=== PATIENT | female | born 1990 | race Caucasian/White ===

== ENCOUNTER 2021-09-26 05:01 | Emergency (ER) | payer BC ==
[2021-09-26 05:51] LABS: Bilirubin Neg (Negative); Blood, Urine Negative (Negative); Clarity Clear (Clear); Glucose, Urine (Dipstick) Normal (Negative); Ketone, Urine 50 mg/dL (Negative); Leukocyte 25 (Negative); Nitrite Negative (Negative); Protein, Urine (Dipstick) Negative (Neg-Trace); Urobilinogen Normal mg/dL (Less than 2); pH, Urine 6.5 (5.0-9.0)
[2021-09-26 05:51] LABS: Actual Bicarbonate (HCO3v) 20 mEq/L (22-28); Base Excess -3.9 mEq/L (-2.0 to +3.0); Chloride (VBG) 105 mmol/L (98-106); Critical Notified By: CP.PH; Hemoglobin (Hb) 12.3 g/dL (11.7-15.5); Potassium (VBG) 3.58 mmol/L (3.70-5.30); Puncture Site Other Site; Sodium 135.5 mmol/L (133-146)
[2021-09-26 05:54] LABS: #Eosinphils 0.1 10x3/uL (0.0-0.5); #Monocytes 0.8 10x3/uL (0.0-1.1); #Neutrophils 4.4 10x3/uL (1.5-8.4); %Basophils 0.3 % (0.0-2.0); %Eosinophils 1.5 % (0.0-6.0); %Lymphocytes 27.8 % (18.0-47.0); %Monocytes 10.3 % (0.0-10.0); %Neutrophils 59.8 % (40.0-75.0); Hemoglobin 11.7 g/dL (12.0-15.5); Mean Corpuscular HGB CONC 34.5 g/dL (32.0-36.0); Mean Corpuscular Hemoglobin 30.2 pg (27.0-33.0); Mean Corpuscular Volume 87.4 fl (81.6-98.3); Platelet Count 378 10x3/uL (150-450); RBC Distribution Width 12.7 % (11.5-14.5); Red Blood Cell (RBC) Count 3.88 10x6/uL (3.90-5.03); White Blood Cell (WBC) Count 7.3 10x3/uL (3.5-10.5)
[2021-09-26 05:59] LABS: Bacteria/HPF 2+ HPF (None Seen); RBC/HPF None Seen HPF (0-3); WBC/HPF 0-3 HPF (0-3)
[2021-09-26 06:08] LABS: ALT (SGPT) 21 U/L (8-55); AST (SGOT) 28 U/L (5-34); Albumin 3.4 g/dL (3.5-5.0); Alkaline Phosphatase 95 U/L (40-110); Anion Gap 17 mmol/L (10-20); BUN (Urea Nitrogen) 6 mg/dL (7.0-18.7); Bilirubin, Total 0.6 mg/dL (0.2-1.2); Calc. Creatinine Clearance 0 mL/min (70-130); Calcium 8.6 mg/dL (7.8-10.44); Carbon Dioxide 18 mmol/L (22-29); Chloride 104 mmol/L (98-107); Estimated GFR 121; Globulin 2.6 g/dL (2.4-3.5); Glucose 133 mg/dL (70-105); Potassium 3.6 mmol/L (3.5-5.1); Sodium 135 mmol/L (136-145)
== END 2021-09-26 06:50 | disposition home or self-care (01) ==
LOC: CSHERS 05:01
DX: O23.13 Infections of bladder in pregnancy, third trimester (principal); N30.00 Acute cystitis without hematuria; O21.9 Vomiting of pregnancy, unspecified; Z3A.32 32 weeks gestation of pregnancy
CPT/HCPCS: 80053; 81003; 81015; 82010; 82805; 85025; 87086; 96360

== ENCOUNTER 2021-11-04 05:21 | Inpatient (IN) | payer BC ==
[2021-11-02 11:20] LABS: Mean Corpuscular HGB CONC 33.8 g/dL (32.0-36.0); Mean Corpuscular Hemoglobin 28.6 pg (27.0-33.0); Mean Corpuscular Volume 84.6 fl (81.6-98.3); Mean Platelet Volume 11.3 fl (7.4-10.4); Platelet Count 293 10x3/uL (150-450); RBC Distribution Width 13.1 % (11.5-14.5); Red Blood Cell (RBC) Count 3.84 10x6/uL (3.90-5.03); White Blood Cell (WBC) Count 8.9 10x3/uL (3.5-10.5)
[2021-11-02 11:44] LABS: Hep B Surf Ag Non-Reactive S/CO (NonReactive); Syphilis Antibody Nonreactive (Nonreactive); Syphilis Antibody Index 0.02 S/CO (<1.00 Non-Reactive)
[2021-11-02 12:04] LABS: HBSAg Index 0.22 S/CO (0-0.99)
[2021-11-04 05:31] VITALS: BMI 33.8
[2021-11-04] MEDS ORDERED: Famotidine/PF 20 mg/2ml Vial SLOW IVP PRN (06:05)
[2021-11-04] MEDS ORDERED: Ondansetron PF 4 MG/2 ML Vial IVP PRN ×3 (06:05→09:31)
[2021-11-04] MEDS ORDERED: Promethazine HCl 25 MG/ML VIAL IM PRN ×3 (06:05→09:31)
[2021-11-04] MEDS ORDERED: Bicitra 30 ML UDCUP PO PRN (06:05)
[2021-11-04] MEDS ORDERED: hydrALAZINE 20 MG/ML VIAL SLOW IVP PRN ×2 (06:05→09:31)
[2021-11-04] MEDS ORDERED: ceFAZolin 2 GM/Dextrose 50 ML 2 GM in Premix Bag 1 BAG IVPB SCH (06:15)
[2021-11-04] MEDS ORDERED: Lactated Ringer's 1,000 ML IV SCH (06:15)
[2021-11-04 06:39] LABS: Amphetamine Not Detected (NotDetected); Barbiturates Screen Not Detected (NotDetected); Benzodiazepine Screen Not Detected (NotDetected); Cocaine Metabolite Screen Not Detected (NotDetected); Methadone Not Detected (NotDetected); Methamphetamine Not Detected (NotDetected); Opiate Screen Not Detected (NotDetected); Oxycodone Screen Not Detected (NotDetected); Phencyclidine (PCP) Not Detected (NotDetected); THC/Cannabinoid Screen Detected (NotDetected); Tricyclic Screen Not Detected (NotDetected)
[2021-11-04] MEDS ORDERED: CEFAZOLIN 2 GM VIAL ONE (07:23)
[2021-11-04] MEDS ORDERED: Lidocaine 1% (PF) 30 ML VIAL ONE (07:36)
[2021-11-04] MEDS ORDERED: PHENYLEPHRINE-NS 100 MCG/ML 10 ML SYRINGE ONE (07:42)
[2021-11-04] MEDS ORDERED: ePHEDrine Sulfate 50 MG/10 ML VIAL ONE (07:42)
[2021-11-04] MEDS ORDERED: Dexamethasone 4 mg/ml Vial ONE (07:42)
[2021-11-04] MEDS ORDERED: Morphine PF 10 MG/10 ML VIAL ONE (07:42)
[2021-11-04] MEDS ORDERED: Ondansetron PF 4 MG/2 ML Vial ONE (07:42)
[2021-11-04] MEDS ORDERED: Fentanyl 100 MCG/2 ML VIAL ONE (07:42)
[2021-11-04] MEDS ORDERED: Oxytocin 10 UNITS/ML VIAL ONE ×3 (07:43→08:44)
[2021-11-04] MEDS ORDERED: Ketorolac Tromethamine 30 MG/ML VIAL ONE (07:43)
[2021-11-04] MEDS ORDERED: Phenylephrine 40 MG/NS 250 ML 250 ML ONE (07:44)
[2021-11-04] MEDS ORDERED: Ropivacaine 0.2% 550 ML 750 ML NERVE BLCK SCH ×2 (07:45→09:15)
[2021-11-04] MEDS ORDERED: Misoprostol 200 MCG TAB ONE (08:12)
[2021-11-04] MEDS ORDERED: Ondansetron HCl/PF 4 MG/2 ML Vial IVP PRN (09:03)
[2021-11-04] MEDS ORDERED: Moisturizing Cream (Eucerin) 113 GM JAR TOP PRN (09:03)
[2021-11-04] MEDS ORDERED: Naloxone HCl 0.4 mg/ml Vial IVP PRN ×2 (09:03)
[2021-11-04] MEDS ORDERED: diphenhydrAMINE 50 MG/ML VIAL IVP PRN (09:03)
[2021-11-04] MEDS ORDERED: Promethazine HCl 25 MG SUPP PR PRN (09:03)
[2021-11-04] MEDS ORDERED: Naloxone HCl 0.4 mg/ml Vial IV PRN (09:03)
[2021-11-04] MEDS ORDERED: Communication Order-Pharmacy FS SCH (09:15)
[2021-11-04] MEDS ORDERED: Ketorolac Tromethamine 30 MG/ML VIAL IVP SCH (09:15)
[2021-11-04] MEDS ORDERED: Bisacodyl 10 MG SUPP PR PRN (09:31)
[2021-11-04] MEDS: Misoprostol 200 MCG TAB ONE ×2 (09:31→13:17)
[2021-11-04] MEDS ORDERED: Dextrose 5% in Water 1,000 ML IV PRN (09:31)
[2021-11-04] MEDS ORDERED: Lanolin Ointment 7 GM TUBE TOP PRN (09:31)
[2021-11-04] MEDS ORDERED: Acetaminophen 325 MG TAB PO PRN (09:31)
[2021-11-04] MEDS ORDERED: Dextrose 50% Abboject 50 ML SYRINGE SLOW IVP PRN (09:31)
[2021-11-04] MEDS ORDERED: diphenhydrAMINE 25 MG CAP PO PRN (09:31)
[2021-11-04] MEDS ORDERED: Docusate 100 MG CAP PO SCH (10:00)
[2021-11-04] MEDS ORDERED: Ferrous Sulfate 325 MG TAB PO SCH (10:00)
[2021-11-04] MEDS ORDERED: Prenatal Vitamin 1 TAB PO SCH (10:00)
[2021-11-04 13:48] LABS: Glucose 171 mg/dL (70-105)
[2021-11-04] MEDS: Ketorolac Tromethamine 30 MG/ML VIAL IVP PRN (17:20)
[2021-11-04] MEDS: Insulin Regular 300 UNITS/3 ML VIAL SC PRN ×2 (18:33→22:27)
[2021-11-04] MEDS: Ferrous Sulfate 325 MG TAB PO SCH (21:00)
[2021-11-04] MEDS: Docusate 100 MG CAP PO SCH (22:29)
[2021-11-05] MEDS: Ketorolac Tromethamine 30 MG/ML VIAL IVP PRN (00:42)
[2021-11-05] MEDS: Insulin Regular 300 UNITS/3 ML VIAL SC PRN ×2 (02:16→06:03)
[2021-11-05 04:28] LABS: Hemoglobin 7.4 g/dL (12.0-15.5); Mean Corpuscular HGB CONC 33.6 g/dL (32.0-36.0); Mean Corpuscular Hemoglobin 28.5 pg (27.0-33.0); Mean Corpuscular Volume 84.6 fl (81.6-98.3); Mean Platelet Volume 11.4 fl (7.4-10.4); Platelet Count 251 10x3/uL (150-450); RBC Distribution Width 13.1 % (11.5-14.5); White Blood Cell (WBC) Count 13.8 10x3/uL (3.5-10.5)
[2021-11-05] MEDS ORDERED: HumaLOG 300 UNITS/3 ML VIAL SC SCH (08:30)
[2021-11-05] MEDS ORDERED: Boostrix 0.5 ML (Tdap) VIAL IM ONE (09:31)
[2021-11-05] MEDS: Ferrous Sulfate 325 MG TAB PO SCH ×2 (09:34→21:36)
[2021-11-05] MEDS: Docusate 100 MG CAP PO SCH ×2 (09:34→21:35)
[2021-11-05] MEDS: Prenatal Vitamin 1 TAB PO SCH (09:34)
[2021-11-05] MEDS: Simethicone Chewable 80 MG TAB PO PRN (09:40)
[2021-11-05] MEDS: Lantus 1000 UNITS/10 ML VIAL SC SCH ×2 (09:44→21:34)
[2021-11-05] MEDS: HumaLOG 300 UNITS/3 ML VIAL SC SCH ×2 (11:57→18:08)
[2021-11-05] MEDS: Ibuprofen 800 MG TAB PO SCH ×2 (13:55→21:36)
[2021-11-05] MEDS: Acetaminophen/Codeine 30-300mg Tablet PO PRN ×2 (13:58→21:35)
[2021-11-06] MEDS: Ibuprofen 800 MG TAB PO SCH ×3 (05:46→21:58)
[2021-11-06] MEDS: Simethicone Chewable 80 MG TAB PO PRN (08:29)
[2021-11-06] MEDS: Ferrous Sulfate 325 MG TAB PO SCH ×2 (08:29→21:58)
[2021-11-06] MEDS: Docusate 100 MG CAP PO SCH ×2 (08:29→21:58)
[2021-11-06] MEDS: Prenatal Vitamin 1 TAB PO SCH (08:29)
[2021-11-06] MEDS: Acetaminophen/Codeine 30-300mg Tablet PO PRN ×3 (08:30→22:10)
[2021-11-06] MEDS: HumaLOG 300 UNITS/3 ML VIAL SC SCH ×3 (08:33→17:28)
[2021-11-06] MEDS: Lantus 1000 UNITS/10 ML VIAL SC SCH ×2 (08:35→22:00)
[2021-11-06 16:42] LABS: Amphetamine Not Detected (NotDetected); Barbiturates Screen Not Detected (NotDetected); Benzodiazepine Screen Not Detected (NotDetected); Cocaine Metabolite Screen Not Detected (NotDetected); Methadone Not Detected (NotDetected); Methamphetamine Not Detected (NotDetected); Opiate Screen Detected (NotDetected); Oxycodone Screen Not Detected (NotDetected); Phencyclidine (PCP) Not Detected (NotDetected); THC/Cannabinoid Screen Not Detected (NotDetected); Tricyclic Screen Not Detected (NotDetected)
[2021-11-07] MEDS: Ibuprofen 800 MG TAB PO SCH ×2 (05:20→14:09)
[2021-11-07 08:06] VITALS: BP 118/79; TEMP 97.9
[2021-11-07] MEDS: Docusate 100 MG CAP PO SCH (09:09)
[2021-11-07] MEDS: Prenatal Vitamin 1 TAB PO SCH (09:09)
[2021-11-07] MEDS: Ferrous Sulfate 325 MG TAB PO SCH (09:09)
[2021-11-07] MEDS: Simethicone Chewable 80 MG TAB PO PRN (09:10)
[2021-11-07] MEDS: Lantus 1000 UNITS/10 ML VIAL SC SCH (09:10)
[2021-11-07] MEDS: HumaLOG 300 UNITS/3 ML VIAL SC SCH ×2 (09:11→13:34)
[2021-11-07] MEDS ORDERED: Measles/Mumps/Rubella 10 MCG/0.5 ML VIAL SC ONE (09:31)
== END 2021-11-07 14:50 | disposition home or self-care (01) | DRG 786 ==
LOC: CSHLD 05:21 → CSHPP 11:20
PROVIDERS: ADMIT Student in an Organized Health Care Education/Training Program; ATTEND Student in an Organized Health Care Education/Training Program
PROC: 10D00Z1 Extraction of Products of Conception, Low, Open Approach (ICD-10-PCS; principal; 2021-11-04)
DX: O32.8XX0 Maternal care for other malpresentation of fetus, not applicable or unspecified (principal); O24.02 Pre-existing type 1 diabetes mellitus, in childbirth; O99.324 Drug use complicating childbirth; O72.2 Delayed and secondary postpartum hemorrhage; Z3A.37 37 weeks gestation of pregnancy; Z37.0 Single live birth; Z79.4 Long term (current) use of insulin; F41.9 Anxiety disorder, unspecified; O99.344 Other mental disorders complicating childbirth; Z79.899 Other long term (current) drug therapy; Z79.82 Long term (current) use of aspirin; Z88.8 Allergy status to other drugs, medicaments and biological substances; Z20.822 Contact with and (suspected) exposure to COVID-19; F12.90 Cannabis use, unspecified, uncomplicated; F11.90 Opioid use, unspecified, uncomplicated; D50.0 Iron deficiency anemia secondary to blood loss (chronic); O90.81 Anemia of the puerperium; E10.65 Type 1 diabetes mellitus with hyperglycemia; F17.210 Nicotine dependence, cigarettes, uncomplicated; O99.334 Smoking (tobacco) complicating childbirth
CPT/HCPCS: 36415; 36416; 51702; 80306; 82947; 85027; 86780; 86850; 86900; 86901; 87340; 90707; A4306; J0690; J1100; J1815; J1885; J2001; J2274; J2405; J2590; J2795; J3010; U0003; U0005

== ENCOUNTER 2023-04-29 09:39 | Inpatient (IN) | payer BC ==
[2023-04-29] MEDS ORDERED: Ondansetron PF 4 MG/2 ML Vial ONE (10:29)
[2023-04-29 10:33] LABS: Actual Bicarbonate (HCO3v) 9.9 mEq/L (22-28); Analyzer IN Cardio CS ER; Base Excess -17.5 mEq/L (-2 - +2); Calcium, Ionized (venous) 1.17 mmol/L (1.16-1.32); Chloride (VBG) 103 mmol/L (98-106); Hematocrit-VBG 47 % (36.0-47.0); Hemoglobin (Hb) 15.9 g/dL (11.7-15.5); Potassium (VBG) 3.66 mmol/L (3.70-5.30); Puncture Site Other Site; RapidComm Collect By sb2; Sodium 138 mmol/L (133-146); pH (venous) 7.149 (7.32-7.43)
[2023-04-29 10:38] LABS: #Basophils 0.1 10x3/uL (0.0-0.2); #Eosinphils 0.1 10x3/uL (0.0-0.5); #Monocytes 0.4 10x3/uL (0.0-1.1); #Neutrophils 4.2 10x3/uL (1.5-8.4); %Basophils 0.8 % (0.0-2.0); %Eosinophils 1.4 % (0.0-6.0); %Lymphocytes 28.1 % (18.0-47.0); %Monocytes 5.9 % (0.0-10.0); %Neutrophils 63.5 % (40.0-75.0); Hemoglobin 15.2 g/dL (12.0-15.5); Mean Corpuscular HGB CONC 34.5 g/dL (32.0-36.0); Mean Corpuscular Hemoglobin 30.6 pg (27.0-33.0); Mean Corpuscular Volume 88.5 fl (81.6-98.3); Mean Platelet Volume 9.3 fl (7.4-10.4); Platelet Count 452 10x3/uL (150-450); RBC Distribution Width 13.3 % (11.5-14.5); Red Blood Cell (RBC) Count 4.97 10x6/uL (3.90-5.03); White Blood Cell (WBC) Count 6.6 10x3/uL (3.5-10.5)
[2023-04-29 10:51] LABS: ALT (SGPT) 15 U/L (8-55); AST (SGOT) 16 U/L (5-34); Albumin 4.8 g/dL (3.5-5.0); Alkaline Phosphatase 62 U/L (40-110); Anion Gap 22 mmol/L (10-20); BUN (Urea Nitrogen) 8 mg/dL (7.0-18.7); Bilirubin, Total 0.6 mg/dL (0.2-1.2); Calc. Creatinine Clearance 0 mL/min (70-130); Calcium 8.2 mg/dL (7.8-10.44); Chloride 106 mmol/L (98-107); Estimated GFR 81; Globulin 3.2 g/dL (2.4-3.5); Glucose 298 mg/dL (70-105); Potassium 3.5 mmol/L (3.5-5.1); Sodium 133 mmol/L (136-145)
[2023-04-29 10:55] LABS: BHCG - Serum Negative (NEGATIVE); Pregs Control Background? CLEAR/WHITE (CLR/WHITE); Pregs Control Bar Appear? YES (CONTROL BAR)
[2023-04-29 11:06] LABS: Carbon Dioxide 9 mmol/L (22-29)
[2023-04-29] MEDS ORDERED: INSULIN REGULAR IN 0.9 % NACL 100 UNITS/100 ML BAG ONE (11:09)
[2023-04-29] MEDS ORDERED: NS 0.9% w/ 40 MEQ KCL 1,000 ML IV ONE (11:11)
[2023-04-29] MEDS ORDERED: NS 0.9% w/ 20 MEQ KCL 1,000 ML IV PRN ×2 (12:16)
[2023-04-29] MEDS ORDERED: Acetaminophen 325 MG TAB PO PRN (12:16)
[2023-04-29] MEDS ORDERED: Dextrose 5 %-0.45 % NaCl 1,000 ML IV PRN (12:16)
[2023-04-29] MEDS ORDERED: Sodium Chloride 0.9% 1,000 ML IV PRN ×4 (12:16)
[2023-04-29] MEDS ORDERED: Electrolyte Replacement Protocol 1 EACH IVPB PRN (12:16)
[2023-04-29] MEDS ORDERED: D5 1/2 NS w/20 mEq KCL 1,000 ML ONE ×3 (12:32→21:58)
[2023-04-29 12:59] LABS: Anion Gap 13 mmol/L (10-20); BUN (Urea Nitrogen) 7 mg/dL (7.0-18.7); Calc. Creatinine Clearance 0 mL/min (70-130); Calcium 7.2 mg/dL (7.8-10.44); Carbon Dioxide 13 mmol/L (22-29); Chloride 112 mmol/L (98-107); Estimated GFR 103; Glucose 150 mg/dL (70-105); Potassium 3.3 mmol/L (3.5-5.1); Sodium 135 mmol/L (136-145)
[2023-04-29] MEDS ORDERED: INSULIN REGULAR IN 0.9 % NACL 100 UNITS in Premix 1 BAG IVPB SCH (13:30)
[2023-04-29 14:18] LABS: SARS-CoV-2 NAA Rapid Test Not Detected (NotDetected)
[2023-04-29] MEDS: Potassium Bicarbonate/Cit Ac 20 MEQ TAB PO SCH (14:52)
[2023-04-29 15:17] LABS: Bilirubin Neg (Negative); Blood, Urine 150 (Negative); Clarity Clear (Clear); Glucose, Urine (Dipstick) 250 mg/dL (Negative); Ketone, Urine 50 mg/dL (Negative); Leukocyte Negative (Negative); Nitrite Negative (Negative); Protein, Urine (Dipstick) 15 mg/dl (Neg-Trace); Urobilinogen Normal mg/dL (Less than 2)
[2023-04-29 15:48] VITALS: BMI 25.6
[2023-04-29 16:00] LABS: Bacteria/HPF 1+ HPF (None Seen); CAUTI Indications for Culture Dysuria,urgency,freq; Squamous Epithelial 0-3 HPF (0-3); WBC/HPF 0-3 HPF (0-3)
[2023-04-29 16:01] LABS: Urine Culture Reflex No No
[2023-04-29] MEDS ORDERED: Ventolin HFA Inhaler 60 PUFF INHALER INH PRN (16:26)
[2023-04-29 17:02] LABS: Anion Gap 11 mmol/L (10-20); BUN (Urea Nitrogen) 5 mg/dL (7.0-18.7); Calc. Creatinine Clearance 113 mL/min (70-130); Calcium 7.5 mg/dL (7.8-10.44); Carbon Dioxide 18 mmol/L (22-29); Chloride 112 mmol/L (98-107); Estimated GFR 115; Glucose 160 mg/dL (70-105); Potassium 3.9 mmol/L (3.5-5.1); Sodium 137 mmol/L (136-145)
[2023-04-29] MEDS: Sertraline 100 MG TAB PO SCH (20:43)
[2023-04-29 21:48] LABS: Anion Gap 9 mmol/L (10-20); BUN (Urea Nitrogen) 4 mg/dL (7.0-18.7); Calc. Creatinine Clearance 124 mL/min (70-130); Calcium 7.6 mg/dL (7.8-10.44); Carbon Dioxide 17 mmol/L (22-29); Chloride 113 mmol/L (98-107); Estimated GFR 120; Glucose 195 mg/dL (70-105); Magnesium 1.7 mg/dL (1.6-2.6); Potassium 3.3 mmol/L (3.5-5.1); Sodium 136 mmol/L (136-145)
[2023-04-29] MEDS: D5 1/2 NS w/20 mEq KCL 1,000 ML IV PRN (22:06)
[2023-04-29 22:13] LABS: Critical Call Chemistry NUR.AEB @2200; Phosphorus Less than 1.0 mg/dL (2.3-4.7)
[2023-04-29] MEDS: Dextrose 50% Abboject 50 ML SYRINGE SLOW IVP PRN (23:03)
[2023-04-29] MEDS ORDERED: Magnesium Sulfate/D5W 1 GM/100 ML BAG ONE (23:16)
[2023-04-29] MEDS: Magnesium Sulfate/D5W 1 GM in Premix 1 BAG IVPB SCH (23:29)
[2023-04-30] MEDS: Potassium Phosphate 30 MMOL in Sodium Chloride 0.9% 250 ML 250 ML IVPB SCH (00:14)
[2023-04-30] MEDS ORDERED: D5 1/2 NS w/20 mEq KCL 1,000 ML ONE ×2 (02:50→07:45)
[2023-04-30 03:44] LABS: Hematocrit 37.1 % (34.9-44.5); Hemoglobin 13.1 g/dL (12.0-15.5); Mean Corpuscular HGB CONC 35.3 g/dL (32.0-36.0); Mean Corpuscular Hemoglobin 30.5 pg (27.0-33.0); Mean Corpuscular Volume 86.3 fl (81.6-98.3); Mean Platelet Volume 9.2 fl (7.4-10.4); Platelet Count 406 10x3/uL (150-450); RBC Distribution Width 13.3 % (11.5-14.5); White Blood Cell (WBC) Count 5.8 10x3/uL (3.5-10.5)
[2023-04-30 04:20] LABS: Anion Gap 11 mmol/L (10-20); BUN (Urea Nitrogen) Less than 4 mg/dL (7.0-18.7); Calc. Creatinine Clearance 128 mL/min (70-130); Calcium 7.7 mg/dL (7.8-10.44); Carbon Dioxide 18 mmol/L (22-29); Chloride 113 mmol/L (98-107); Estimated GFR 121; Glucose 163 mg/dL (70-105); Magnesium 1.9 mg/dL (1.6-2.6); Potassium 3.3 mmol/L (3.5-5.1); Sodium 139 mmol/L (136-145)
[2023-04-30 04:21] LABS: Phosphorus 2.2 mg/dL (2.3-4.7)
[2023-04-30] MEDS ORDERED: Potassium Phosphate 30 MMOL in Sodium Chloride 0.9% 500 ML IVPB SCH (08:15)
[2023-04-30] MEDS ORDERED: Glucagon 1 MG/ML KIT IM PRN (08:41)
[2023-04-30] MEDS ORDERED: Dextrose 5% in Water 1,000 ML IV PRN (08:41)
[2023-04-30] MEDS ORDERED: Dextrose 50% Abboject 50 ML SYRINGE SLOW IVP PRN (08:41)
[2023-04-30] MEDS ORDERED: Lantus 1000 UNITS/10 ML VIAL SC SCH ×3 (09:00→21:00)
[2023-04-30] MEDS ORDERED: Magnesium 2 GM/50 ML BAG (IN WATER) ONE (09:33)
[2023-04-30] MEDS: Magnesium 2 GM/50 ML(in water) 2 GM in Premix 1 BAG IVPB SCH (09:41)
[2023-04-30 09:51] LABS: Phosphorus 2.4 mg/dL (2.3-4.7)
[2023-04-30] MEDS: Lantus 1000 UNITS/10 ML VIAL SC SCH (15:19)
[2023-04-30] MEDS: Insulin Regular 300 UNITS/3 ML VIAL SC SCH (15:19)
[2023-04-30] MEDS: HumaLOG 300 UNITS/3 ML VIAL SC PRN (21:56)
[2023-05-01 03:48] LABS: #Eosinphils 0.1 10x3/uL (0.0-0.5); #Monocytes 0.4 10x3/uL (0.0-1.1); #Neutrophils 1.9 10x3/uL (1.5-8.4); %Basophils 0.4 % (0.0-2.0); %Eosinophils 2.6 % (0.0-6.0); %Lymphocytes 48.7 % (18.0-47.0); %Monocytes 8.1 % (0.0-10.0); Hematocrit 37.6 % (34.9-44.5); Hemoglobin 13.2 g/dL (12.0-15.5); Mean Corpuscular HGB CONC 35.1 g/dL (32.0-36.0); Mean Corpuscular Hemoglobin 30.4 pg (27.0-33.0); Mean Corpuscular Volume 86.6 fl (81.6-98.3); Mean Platelet Volume 8.9 fl (7.4-10.4); Platelet Count 387 10x3/uL (150-450); RBC Distribution Width 13.4 % (11.5-14.5); Red Blood Cell (RBC) Count 4.34 10x6/uL (3.90-5.03); White Blood Cell (WBC) Count 4.7 10x3/uL (3.5-10.5)
[2023-05-01 03:59] LABS: Anion Gap 11 mmol/L (10-20); BUN (Urea Nitrogen) Less than 4 mg/dL (7.0-18.7); Calc. Creatinine Clearance 124 mL/min (70-130); Carbon Dioxide 24 mmol/L (22-29); Chloride 109 mmol/L (98-107); Estimated GFR 120; Glucose 136 mg/dL (70-105); Potassium 3.5 mmol/L (3.5-5.1); Sodium 140 mmol/L (136-145)
[2023-05-01 04:01] LABS: Phosphorus 3.1 mg/dL (2.3-4.7)
[2023-05-01 05:53] VITALS: TEMP 98.4
[2023-05-01] MEDS: Potassium Chloride 20 MEQ TAB PO SCH (07:48)
[2023-05-01] MEDS: Magnesium 2 GM/50 ML(in water) 2 GM in Premix 1 BAG IVPB SCH (08:29)
[2023-05-01 08:39] VITALS: BP 103/63
== END 2023-05-01 10:45 | disposition home or self-care (01) | DRG 639 ==
LOC: CSHERS 09:39 → CSHERHOLD 12:13 → CSHPP 04-30 14:21
PROVIDERS: ADMIT Internal Medicine; ATTEND Family Medicine
DX: E10.10 Type 1 diabetes mellitus with ketoacidosis without coma (principal); E86.0 Dehydration; Z88.8 Allergy status to other drugs, medicaments and biological substances; Z79.899 Other long term (current) drug therapy; Z79.4 Long term (current) use of insulin; F41.9 Anxiety disorder, unspecified; F32.A Depression, unspecified; Z79.84 Long term (current) use of oral hypoglycemic drugs; Z98.890 Other specified postprocedural states; Z11.52 Encounter for screening for COVID-19
CPT/HCPCS: 36415; 36416; 71045; 80048; 80053; 81001; 82010; 82805; 83735; 84100; 84703; 85025; 85027; J1815; J2405; J3475; J3480; J7050; J7999